=== PATIENT | female | born 1990 | race Caucasian/White ===

== ENCOUNTER 2024-12-07 10:54 | Outpatient (REF) | payer BC, SELFPAY ==
--- NOTE | 2024-12-07 10:51 | PAPFT_PTH ---
PATIENT: ORLIN MAGANA LOC: [facility] U#:[id number] AGE/SX: 33/F ROOM: RE12/07/[address]: Virginia Hood MD : 1990 BED: DIS: 12/07/2024 SPEC #: [id number] RECD: 12/07/24 13:16 STATUS: REGLA REQ #: [id number] LAMIN: 12/07/24 10:[address]: Virginia Hood DEPT: [facility] Cytology RECD BY: Kala Ferrer ENTERED: 12/07/24 13:16 SP TYPE: PAPFT OTHR DR: Josselyn Ortega Tissues: 1 - CX/ENDOCX FOR PAP SMEARS Procedures: PAP THIN PREP/[facility] Screening HPV DNA PROBE Comments: [id number] (HPV 16 & 18/45)
== END 2024-12-07 10:55 | disposition home or self-care (01) ==
LOC: LBN 10:54
PROVIDERS: PCP Nurse Practitioner Adult Health; Visit Provider Obstetrics & Gynecology
DX: Z12.4 Encounter for screening for malignant neoplasm of cervix (principal)
CPT/HCPCS: 88142; 87624